=== PATIENT | female | born 1995 | race Caucasian/White ===

== ENCOUNTER 2017-08-11 10:47 | Emergency (ER) | payer BC ==
[2017-08-11 13:22] VITALS: BP 122/76
--- NOTE | 2017-08-11 13:23 | UC ---
Throat Pain/Nasal Silverio HPI - HPI Summary HPI Summary: 22 female presents to [facility] with complaints of nasal congestion, sore throat, headache and cough that has been ongoing for the past couple of weeks. Patient states she took dayquil and sudafed last night had some relief. Has also been taking zicam. Also had one episode of vomiting last night which she thinks was from coughing fit and headache pain. Denies any other complaints. No fever/ chills, abdominal pain, vision changes, injury/trauma and difficulty breathing. - History of Current Complaint Chief Complaint: UCGeneralIllness Stated Complaint: RUNNY NOSE HEADACHE COUGH VOMITING Time Seen by Provider: 08/11/17 12:33 Hx Obtained From: Patient ?: No Onset/Duration: Sudden Onset, Lasting Weeks, Still Present Severity: Mild Pain Intensity: 0 Pain Scale Used: 0-10 Numeric Cough: Productive Associated Signs & Symptoms: Positive: Dysphagia, Nasal Discharge, Vomiting - 1 - Epiglottits Risk Factors Epiglottis Risk Factors: Negative - Allergies/Home Medications Allergies/Adverse Reactions: Allergies Allergy/AdvReac Type Severity Reaction Status Date / Time Hydrocodone [From Vicodin] Allergy Rash Verified 08/11/17 11:20 Home Medications: Home Medications Drospirenone-Ethinyl Estradiol [Violet 28 3-0.03 mg] 1 tab PO DAILY 08/11/17 [ History Confirmed 08/11/17] Loratadine 10 mg PO DAILY 08/11/17 [History Confirmed 08/11/17] PMH/Surg Hx/FS Hx/Imm Hx - Additional Past Medical History Additional PMH: denies asthma, dm and htn - Surgical History Surgical History: Yes Surgery Procedure, Year, and Place: right knee, acl tear. appy - Family History Known Family History: Positive: None - Social History Alcohol Use: Occasionally Substance Use Type: None Smoking Status (MU): Never Smoked Tobacco - Immunization History Vaccination Up to Date: Yes Review of Systems Constitutional: Negative Eyes: Negative ENT: Sore Throat, Ear Ache, Nasal Discharge Respiratory: Cough Cardiovascular: Negative Gastrointestinal: Vomiting - x1 Musculoskeletal: Negative Neurological: Headache All Other Systems Reviewed And Are Negative: Yes Physical Exam Triage Information Reviewed: Yes Appearance: Well-Appearing, No Pain Distress, Well-Nourished Vital Signs: Initial Vital Signs Temp 98.0 F 08/11/17 11:16 Pulse 80 08/11/17 11:16 Resp 14 08/11/17 11:16 BP 128/76 08/11/17 11:16 Pulse Ox 100 08/11/17 11:16 Vital Signs Reviewed: Yes Eyes: Positive: Conjunctiva Clear ENT: Positive: Hearing grossly normal, Pharynx normal, Pharyngeal erythema, Nasal congestion, TMs normal. Negative: TM bulging, TM dull, TM red, Tonsillar swelling, Tonsillar exudate, Sinus tenderness Dental: Negative: Percussion Tenderness @, Cervical Lymphadenopathy Neck: Positive: Supple, Nontender, No Lymphadenopathy Respiratory: Positive: Chest non-tender, Lungs clear, Normal breath sounds, No respiratory distress, No accessory muscle use. Negative: Rhonchi, Stridor, Wheezing Cardiovascular: Positive: RRR, No Murmur, Pulses Normal Abdomen Description: Positive: Nontender Bowel Sounds: Positive: Present Musculoskeletal: Positive: Strength Intact Neurological: Positive: Alert Skin Exam: Normal Throat Pain/Nasal Course/Dx - Course Course Of Treatment: appears to be suffering from a URI/rhinosinusitis. will continue to treat symptomatically due to PE findings. no concern for bacterial infection at this time. symptoms have been waxing and waning and are better at times. is worse when she does not get sleep from school/working. increase fluids , rest and follow up. mucinex, flonase, tessalon pearls, chloraseptic spray and continue antihistamine. aware of worsening signs and symptoms. normal vitals and PE. - Differential Dx/Diagnosis Differential Diagnosis/HQI/PQRI: Otitis Media, Pharyngitis, Sinusitis, URI, Other - rhinosinusitis Provider Diagnoses: upper respiratory infection Discharge - Discharge Plan Condition: Stable Disposition: HOME Prescriptions: Benzonatate CAP* [Tessalon 100 MG CAP*] 100 mg PO TID #15 cap Fluticasone NASAL SPRAY 50MCG* [Flonase NASAL SPRAY 50MCG*] 2 spray BOTH NARES DAILY #1 btl Patient Education Materials: Upper Respiratory Infection (ED) Forms: *Work Release Referrals: Non Staff,Doctor [Primary Care Provider] - Additional Instructions: Take mucinex OTC. Use prescribed flonase as directed, cough medication as needed specifically at bedtime. Increase fluid intake, and get plenty of rest. Recommend emergen-c sold over the counter to help boost immune system. Humidifier, hot showers and extra pillow at bedtime. Advil as needed for headache. Follow up with PCP. Any new or worsening symptoms (fever, worsening sxs, etc) please seek medical attention promptly.
== END 2017-08-11 13:28 | disposition home or self-care (01) ==
LOC: UCCORT 10:47
DX: J06.9 Acute upper respiratory infection, unspecified (principal)
CPT/HCPCS: 99202; G0463

== ENCOUNTER 2018-08-02 09:20 | Emergency (ER) | payer BC ==
[2018-08-02 09:38] VITALS: BP 122/71
--- NOTE | 2018-08-02 09:50 | UC ---
Ear Complaint HPI - HPI Summary HPI Summary: Pt c/o bilateral ear pain, URI like symptoms X 1 week. - History of Current Complaint Chief Complaint: UCGeneralIllness Stated Complaint: EAR PAIN (BOTH),CONGESTION Time Seen by Provider: 08/02/18 09:44 Hx Obtained From: Patient Hx Last Menstrual Period: 07/10/18 ?: No Onset/Duration: Sudden Onset, Lasting Days, Still Present Severity Initially: Mild Severity Currently: Moderate Pain Intensity: 2 Associated Signs/Symptoms: Positive: URI Symptoms - Allergies/Home Medications Allergies/Adverse Reactions: Allergies Allergy/AdvReac Type Severity Reaction Status Date / Time acetaminophen [From Vicodin] Allergy Intermediate Rash Verified 08/02/18 09:38 hydrocodone [From Vicodin] Allergy Intermediate Rash Verified 08/02/18 09:38 PMH/Surg Hx/FS Hx/Imm Hx Previously Healthy: Yes - Surgical History Surgical History: Yes Surgery Procedure, Year, and Place: right knee, acl tear. appy - Family History Known Family History: Positive: Cardiac Disease - Social History Occupation: Employed Full-time Lives: With Family Alcohol Use: Occasionally Substance Use Type: None Smoking Status (MU): Never Smoked Tobacco Have You Smoked in the Last Year: No - Immunization History Vaccination Up to Date: Yes Review of Systems Constitutional: Negative Skin: Negative Eyes: Negative ENT: Ear Ache Respiratory: Negative Cardiovascular: Negative Gastrointestinal: Negative Genitourinary: Negative Motor: Negative Neurovascular: Negative Musculoskeletal: Negative Neurological: Negative Psychological: Negative Is Patient Immunocompromised?: No All Other Systems Reviewed And Are Negative: Yes Physical Exam Triage Information Reviewed: Yes Appearance: Well-Appearing Vital Signs: Initial Vital Signs Temp 97.7 F 08/02/18 09:33 Pulse 82 08/02/18 09:33 Resp 18 08/02/18 09:33 BP 122/71 08/02/18 09:33 Pulse Ox 100 08/02/18 09:33 Vital Signs Reviewed: Yes Eye Exam: Normal ENT: Positive: TM bulging, TM red Dental Exam: Normal Neck exam: Normal Respiratory Exam: Normal Cardiovascular Exam: Normal Musculoskeletal Exam: Normal Neurological Exam: Normal Psychological Exam: Normal Skin Exam: Normal Ear Complaint Course/Dx - Differential Dx/Diagnosis Differential Diagnosis/HQI/PQRI: Otitis Media, URI Provider Diagnoses: serous otitis media bilateral Discharge - Sign-Out/Discharge Documenting (check all that apply): Patient Departure All imaging exams completed and their final reports reviewed: No Studies - Discharge Plan Condition: Stable Disposition: HOME Prescriptions: Amoxicillin PO (*) [Amoxicillin 500 MG CAP*] 500 mg PO Q12H #20 cap Pseudoephedrine TAB* [Sudafed TAB*] 60 mg PO Q12H #14 tab Patient Education Materials: Serous Otitis Media (ED) Referrals: Priscilla Hess DO [Primary Care Provider] - If Needed - Billing Disposition and Condition Condition: STABLE Disposition: Home
== END 2018-08-02 09:56 | disposition home or self-care (01) ==
LOC: UCCORT 09:20
DX: H65.93 Unspecified nonsuppurative otitis media, bilateral (principal); Z88.5 Allergy status to narcotic agent; Z88.6 Allergy status to analgesic agent
CPT/HCPCS: 99212; G0463

== ENCOUNTER 2019-08-20 11:01 | Emergency (ER) | payer BC ==
[2019-08-20 12:45] VITALS: BP 116/66
[2019-08-20] MEDS ORDERED: Albuterol HFA INHALER* 8 gm MDI INH ONE (13:00)
[2019-08-20] MEDS ORDERED: predniSONE TAB* 20 MG PO ONE (13:00)
--- NOTE | 2019-08-20 13:14 | UC ---
Respiratory Complaint HPI - HPI Summary HPI Summary: 24 yo female with cough x 1 1/2 weeks now with wheeze cough worse at night hx asthma as child no f/c no cp or sob - History of Current Complaint Chief Complaint: UCGeneralIllness Stated Complaint: COUGH Time Seen by Provider: 08/20/19 12:54 Hx Obtained From: Patient Hx Last Menstrual Period: 08/14/19 Onset/Duration: Gradual Onset, Lasting Days Timing: Constant Severity Initially: Mild Severity Currently: Moderate Pain Intensity: 0 Pain Scale Used: 0-10 Numeric Character: Cough: Nonproductive Aggravating Factors: Nothing Alleviating Factors: Nothing Associated Signs And Symptoms: Positive: Wheezing, Nasal Congestion - Allergies/Home Medications Allergies/Adverse Reactions: Allergies Allergy/AdvReac Type Severity Reaction Status Date / Time acetaminophen [From Vicodin] Allergy Intermediate Rash Verified 08/20/19 12:39 hydrocodone [From Vicodin] Allergy Intermediate Rash Verified 08/20/19 12:39 PMH/Surg Hx/FS Hx/Imm Hx Previously Healthy: Yes Respiratory History: Asthma - Surgical History Surgical History: Yes Surgery Procedure, Year, and Place: right knee, acl tear. appendectomy - Family History Known Family History: Positive: Cardiac Disease Negative: Hypertension, Diabetes - Social History Alcohol Use: Occasionally Substance Use Type: None Smoking Status (MU): Never Smoked Tobacco Have You Smoked in the Last Year: No - Immunization History Vaccination Up to Date: Yes Review of Systems All Other Systems Reviewed And Are Negative: Yes Constitutional: Positive: Negative Skin: Positive: Negative Eyes: Positive: Negative ENT: Positive: Sinus Congestion Respiratory: Positive: Cough Cardiovascular: Positive: Negative Gastrointestinal: Positive: Negative Genitourinary: Positive: Negative Motor: Positive: Negative Neurovascular: Positive: Negative Musculoskeletal: Positive: Negative Neurological: Positive: Negative Psychological: Positive: Negative Physical Exam Triage Information Reviewed: Yes Appearance: Well-Appearing, No Pain Distress, Well-Nourished Vital Signs: Initial Vital Signs Temp 98 F 08/20/19 12:40 Pulse 91 08/20/19 12:40 Resp 15 08/20/19 12:40 BP 116/66 08/20/19 12:40 Pulse Ox 98 08/20/19 12:40 Vital Signs Reviewed: Yes ENT: Positive: Hearing grossly normal, Nasal congestion, TMs normal, Uvula midline. Negative: Nasal drainage, Tonsillar swelling, Tonsillar exudate, Trismus, Muffled voice, Hoarse voice, Dental tenderness, Sinus tenderness Dental Exam: Normal Neck: Positive: Supple, Nontender, No Lymphadenopathy Respiratory: Positive: No respiratory distress, No accessory muscle use, Wheezing - with forced expiration, Other: - bronchospastic cough Cardiovascular: Positive: RRR, No Murmur Musculoskeletal: Positive: ROM Intact, No Edema Neurological: Positive: Alert Psychological Exam: Normal Skin Exam: Normal Respiratory Course/Dx - Differential Dx/Diagnosis Provider Diagnosis: Viral bronchitis Discharge ED - Sign-Out/Discharge Documenting (check all that apply): Patient Departure All imaging exams completed and their final reports reviewed: No Studies - Discharge Plan Condition: Stable Disposition: HOME Prescriptions: predniSONE TAB* [Deltasone 20 MG TAB*] 40 mg PO DAILY #8 tab Patient Education Materials: Bronchospasm (ED), How to Use a Metered-Dose Inhaler and a Spacer (ED) Referrals: Priscilla Hess DO [Primary Care Provider] - 4 Days (if not better) - Billing Disposition and Condition Condition: STABLE Disposition: Home
== END 2019-08-20 13:18 | disposition home or self-care (01) ==
LOC: UCCORT 11:01
DX: J20.8 Acute bronchitis due to other specified organisms (principal); Z88.6 Allergy status to analgesic agent; Z88.5 Allergy status to narcotic agent
CPT/HCPCS: 99213; A9270-GY; G0463; J7512